=== PATIENT | female | born 1950 | race Caucasian/White ===

== ENCOUNTER → 2021-04-30 11:10 | Outpatient (BNVA) | payer MEDICARE, SELFPAY | PROVIDERS: Referring Provider Family Medicine; Visit Provider Internal Medicine | DX: E16.1 Other hypoglycemia (principal); E83.39 Other disorders of phosphorus metabolism; Z87.891 Personal history of nicotine dependence | CPT/HCPCS: 99204 ==

== ENCOUNTER → 2021-08-22 11:18 | Outpatient (BNVA) | payer MEDICARE, SELFPAY | PROVIDERS: Visit Provider Internal Medicine | DX: E16.1 Other hypoglycemia (principal); E83.39 Other disorders of phosphorus metabolism; Z87.891 Personal history of nicotine dependence | CPT/HCPCS: 99213 ==